=== PATIENT | male | born 1970 | race Caucasian/White ===

== ENCOUNTER 2016-08-30 21:04 | Emergency (ER) | payer SELFPAY ==
[~2016-08-30] VITALS: Ht 177.8 cm; Wt 81.2 kg
[2016-08-30] MEDS ORDERED: TOPROL XL25 MG PO (22:56)
[2016-08-30] MEDS ORDERED: AMLODIPINE BESYL5 MG PO (22:57)
== END 2016-08-30 23:55 | disposition short-term general hospital (02) ==
LOC: ER 21:04 → LAB 21:04 → ER 21:10
DX: K52.9 Noninfective gastroenteritis and colitis, unspecified (principal); I10 Essential (primary) hypertension; E83.52 Hypercalcemia; Z79.899 Other long term (current) drug therapy
CPT/HCPCS: J1885; J2175; J2550; Q9963; Q9967